=== PATIENT | male | born 1985 | race African-American/Black ===

== ENCOUNTER 2016-07-19 18:54 | Emergency (ER) | payer OTHER ==
[~2016-07-19] VITALS: Ht 170.2 cm; Wt 109.3 kg
[2016-07-19 22:30] VITALS: BP 145/85
== END 2016-07-19 22:52 | disposition home or self-care (01) ==
LOC: EME 18:54
DX: S00.01XA Abrasion of scalp, initial encounter (principal); W26.8XXA Contact with other sharp object(s), not elsewhere classified, initial encounter
CPT/HCPCS: 70450; 99281; 99283